=== PATIENT | female | born 1980 | race Caucasian/White ===

== ENCOUNTER 2020-08-04 12:50 | Emergency (ER) | payer OTHER ==
[~2020-08-04] VITALS: Ht 162.6 cm; Wt 65.8 kg
[~2020-08-04 12:50] MED LIST: ALBU90OI INH; CEPH500 PO; IBUP800 PO; OXYACE5T PO; SERT50 PO; ZOLP5 PO
[2020-08-04 13:25] LABS: Source, Urine Clean Catch
[2020-08-04 13:25] LABS: BASOPHILS ABSOLUTE AUTO 0.02 K/mm3 (0.00-0.23); BASOPHILS PERCENT AUTO 0 % (0-2); EOSINOPHILS ABSOLUTE AUTO 0.09 K/mm3 (0.00-0.68); EOSINOPHILS PERCENT AUTO 1 % (0-6); Hematocrit 37.9 % (33.0-51.0); Hemoglobin 12.9 g/dL (11.5-16.0); IMMATURE GRAN ABSOLUTE AUTO 0.01 K/mm3 (0.00-0.10); IMMATURE GRAN PERCENT AUTO 0 % (0-1); LYMPHOCYTES ABSOLUTE AUTO 2.28 K/mm3 (0.84-5.20); LYMPHOCYTES PERCENT AUTO 31 % (21-46); MONOCYTES ABSOLUTE AUTO 0.48 K/mm3 (0.16-1.47); MONOCYTES PERCENT AUTO 7 % (4-13); Mean Corpuscular HGB 30.4 pg (26.0-34.0); Mean Corpuscular Volume 89 fL (80-100); Mean Platelet Volume 8.3 fL (9.1-12.4); NEUTROPHILS PERCENT AUTO 61 % (41-73); Platelet Count 216 K/mm3 (150-400); RDW Coefficient Variation 11.5 % (11.7-14.2); RDW Standard Deviation 36.8 fL (35.1-46.3); Red Blood Cell Count 4.24 M/mm3 (3.80-5.20); White Blood Cell Count 7.28 K/mm3 (4.00-11.30)
[2020-08-04 13:28] LABS: Bilirubin, Urine Neg (Neg); Blood, Urine 1+ (Neg); Glucose Qualitative, Urine Neg (Neg); Ketones, Urine Neg (Neg); Leukocyte Esterase, Urine 1+ (Neg); Nitrite, Urine Neg (Neg); Protein, Urine Neg (Neg); Specific Gravity, Urine 1.025 (1.003-1.022); Urobilinogen, Urine NORM (Normal)
[2020-08-04 13:34] LABS: Appearance, Urine Hazy (Clear); Color, Urine Yellow (P-Yellow)
[2020-08-04 13:36] LABS: Bacteria Many /hpf; Red Blood Cells, Urine 0-2 /hpf (0-2); Squamous Epithelial Cells Mod /hpf (Few)
[2020-08-04 13:37] LABS: Mucus Light (0-Heavy)
[2020-08-04 13:46] LABS: Alanine Aminotransfer (ALT/SGP 25 U/L (12-78); Albumin, Blood 3.7 g/dL (3.4-5.0); Albumin/Globulin Ratio 1.1 (0.8-1.8); Alk Phos 62 U/L (50-136); Anion Gap 3 mmol/L (6-16); Aspartate Aminotrans (AST/SGOT 16 U/L (12-37); Bilirubin, Total 0.5 mg/dL (0.1-1.0); Blood Urea Nitrogen 13 mg/dL (8-24); Bun/Creatinine Ratio 18.1 (12.0-20.0); CO2, Blood 29 mmol/L (21-32); Calcium, Blood 8.6 mg/dL (8.5-10.1); Chloride, Blood 102 mmol/L (98-108); Creatinine, Blood 0.72 mg/dL (0.40-1.00); Globulin, Blood 3.4 g/dL (2.2-4.0); Glomerular Filtration Rate >60 (60-); Glucose, Blood 137 mg/dL (70-99); Potassium, Blood 3.8 mmol/L (3.5-5.5); Sodium, Blood 134 mmol/L (136-145); Total Protein, Blood 7.1 g/dL (6.4-8.2)
[2020-08-04] MEDS ORDERED: HYDCOR10 PO (16:20)
== END 2020-08-04 17:55 | disposition home or self-care (01) ==
LOC: ER 12:50
PROVIDERS: Physician Assistant
DX: N83.201 Unspecified ovarian cyst, right side (principal); Z88.1 Allergy status to other antibiotic agents; Z79.899 Other long term (current) drug therapy
CPT/HCPCS: 36415; 76856; 80053; 81001; 85025; 87086; 99284-25

== ENCOUNTER → 2021-07-29 | Outpatient (CLI) | payer OTHER ==
[~2021-07-29] MED LIST changes: +HYDCOR10 PO
[2021-07-29 13:31] LABS: BASOPHILS ABSOLUTE AUTO 0.02 K/mm3 (0.00-0.23); BASOPHILS PERCENT AUTO 0 % (0-2); EOSINOPHILS ABSOLUTE AUTO 0.14 K/mm3 (0.00-0.68); EOSINOPHILS PERCENT AUTO 2 % (0-6); Hematocrit 39.4 % (33.0-51.0); Hemoglobin 13.1 g/dL (11.5-16.0); IMMATURE GRAN ABSOLUTE AUTO 0.01 K/mm3 (0.00-0.10); IMMATURE GRAN PERCENT AUTO 0 % (0-1); LYMPHOCYTES ABSOLUTE AUTO 2.17 K/mm3 (0.84-5.20); LYMPHOCYTES PERCENT AUTO 36 % (21-46); MONOCYTES ABSOLUTE AUTO 0.42 K/mm3 (0.16-1.47); MONOCYTES PERCENT AUTO 7 % (4-13); Mean Corpuscular HGB 30.2 pg (26.0-34.0); Mean Corpuscular HGB Conc 33.2 g/dL (31.5-36.5); Mean Corpuscular Volume 91 fL (80-100); Mean Platelet Volume 8.6 fL (9.1-12.4); NEUTROPHILS ABSOLUTE AUTO 3.24 K/mm3 (1.96-9.15); NEUTROPHILS PERCENT AUTO 54 % (41-73); Platelet Count 268 K/mm3 (150-400); RDW Coefficient Variation 11.9 % (11.7-14.2); RDW Standard Deviation 39.3 fL (35.1-46.3); Red Blood Cell Count 4.34 M/mm3 (3.80-5.20)
[2021-07-29 15:26] LABS: Alanine Aminotransfer (ALT/SGP 23 U/L (12-78); Albumin, Blood 3.9 g/dL (3.4-5.0); Albumin/Globulin Ratio 1.2 (0.8-1.8); Alk Phos 77 U/L (50-136); Anion Gap 6 mmol/L (6-16); Aspartate Aminotrans (AST/SGOT 13 U/L (12-37); Bilirubin, Total 0.4 mg/dL (0.1-1.0); Blood Urea Nitrogen 13 mg/dL (8-24); Bun/Creatinine Ratio 17.9 (12.0-20.0); CHOL/HDL RATIO 2.6; CO2, Blood 28 mmol/L (21-32); Calcium, Blood 8.9 mg/dL (8.5-10.1); Chloride, Blood 106 mmol/L (98-108); Cholesterol 192 mg/dL (50-200); Creatinine, Blood 0.73 mg/dL (0.40-1.00); Globulin, Blood 3.3 g/dL (2.2-4.0); Glomerular Filtration Rate >60 (60-); Glucose, Blood 96 mg/dL (70-99); HDL Cholesterol 75 mg/dL (>39); LDL/HDL RATIO 1.3; Low Density Lipoprotein Chol 96 mg/dL (0-110); Potassium, Blood 3.9 mmol/L (3.5-5.5); Sodium, Blood 140 mmol/L (136-145); Total Protein, Blood 7.2 g/dL (6.4-8.2); Triglycerides 105 mg/dL (30-140); Very Low Density Lipoprot Chol 21 mg/dL (6-28)
[2021-07-30 15:11] LABS: HPV 16 Negative (Negative); HPV 18 Negative (Negative); HPV OTHER HR TYPES Negative (Negative)
== END | disposition home or self-care (01) ==
LOC: LAB SHORT 09:00
PROVIDERS: Nurse Practitioner
DX: Z12.4 Encounter for screening for malignant neoplasm of cervix (principal); Z11.59 Encounter for screening for other viral diseases; E78.1 Pure hyperglyceridemia; F41.1 Generalized anxiety disorder; F32.A Depression, unspecified
CPT/HCPCS: 80053; 80061; 85025; 86803; 87624; G0123

== ENCOUNTER → 2022-08-28 | Outpatient (CLI) | payer OTHER | END | disposition home or self-care (01) | LOC: LAB SHORT 16:02 → LAB 16:02 | DX: O20.0 Threatened abortion (principal) | CPT/HCPCS: 84702 ==

== ENCOUNTER → 2023-09-29 | Outpatient (CLI) | payer OTHER ==
[~2023-09-29] MED LIST changes: +METPHE10 PO
== END | disposition home or self-care (01) ==
LOC: LAB SHORT 16:26 → LAB 16:26
DX: O09.523 Supervision of elderly multigravida, third trimester (principal)
CPT/HCPCS: 87081; 87150

== ENCOUNTER 2023-10-20 04:04 | Inpatient (IN) | payer OTHER ==
[2023-10-20] VITALS (29 sets, daily range): BP systolic 82–135; BP diastolic 55–88
[~2023-10-20] VITALS: Ht 157.5 cm; Wt 73.0 kg
[2023-10-20] MEDS ORDERED: Lactated Ringer's 1,000 ML IV STA (04:14)
[2023-10-20] MEDS ORDERED: Lactated Ringer's 1,000 ML IV SCH ×2 (04:15→07:40)
[2023-10-20] MEDS ORDERED: CeFAZolin Sodium 2,000 MG in NS 100 ML IV SCH (04:15)
[2023-10-20 04:38] LABS: BASOPHILS ABSOLUTE AUTO 0.03 K/mm3 (0.00-0.23); BASOPHILS PERCENT AUTO 0 % (0-2); EOSINOPHILS ABSOLUTE AUTO 0.19 K/mm3 (0.00-0.68); EOSINOPHILS PERCENT AUTO 3 % (0-6); Hematocrit 39.3 % (33.0-51.0); Hemoglobin 13.6 g/dL (11.5-16.0); IMMATURE GRAN ABSOLUTE AUTO 0.03 K/mm3 (0.00-0.10); IMMATURE GRAN PERCENT AUTO 0 % (0-1); LYMPHOCYTES ABSOLUTE AUTO 2.17 K/mm3 (0.84-5.20); LYMPHOCYTES PERCENT AUTO 31 % (21-46); MONOCYTES ABSOLUTE AUTO 0.63 K/mm3 (0.16-1.47); MONOCYTES PERCENT AUTO 9 % (4-13); Mean Corpuscular HGB Conc 34.6 g/dL (31.5-36.5); Mean Corpuscular Volume 87 fL (80-100); Mean Platelet Volume 9.7 fL (9.1-12.4); NEUTROPHILS ABSOLUTE AUTO 4.01 K/mm3 (1.96-9.15); NEUTROPHILS PERCENT AUTO 57 % (41-73); Platelet Count 174 K/mm3 (150-400); RDW Coefficient Variation 13.8 % (11.7-14.2); RDW Standard Deviation 43.6 fL (35.1-46.3); Red Blood Cell Count 4.53 M/mm3 (3.80-5.20); White Blood Cell Count 7.06 K/mm3 (4.00-11.30)
[2023-10-20] MEDS ORDERED: Ondansetron HCl 2 MG / ML 2ML Vial IV PRN ×2 (04:40→07:30)
[2023-10-20] MEDS ORDERED: Terbutaline Sulfate 1MG / ML 1 ML Amp ONE (04:43)
[2023-10-20] MEDS ORDERED: Terbutaline Sulfate 1MG / ML 1 ML Amp SC ONE (04:50)
[2023-10-20] MEDS ORDERED: Citric Acid/Sodium Citrate 30 ML BTL ONE (05:10)
[2023-10-20] MEDS ORDERED: Metoclopramide HCl 5MG / ML 2ML Vial ONE (05:11)
[2023-10-20] MEDS ORDERED: Oxytocin 10 Unit / ML Vial ONE (05:18)
[2023-10-20] MEDS ORDERED: FentaNYL Citrate 50 MCG/ML 2 ML Injection ONE (05:18)
[2023-10-20] MEDS ORDERED: Phenylephrine HCl 100 MCG/ML-NS 10MLSYR (1MG/10ML) ONE (05:57)
[2023-10-20] MEDS ORDERED: Labetalol HCL 5 MG/ML 4ML Injection (Single Dose) ONE (06:06)
[2023-10-20] MEDS ORDERED: Tranexamic Acid 100 ML IV ONE (06:07)
[2023-10-20 06:19] LABS: PCO2 Cord - Arterial 60.1 mmHg (40-50); pH Cord - Arterial 7.25 (7.28-7.35)
[2023-10-20 06:20] LABS: PCO2 Cord - Venous 56.9 mmHg (40-50); PO2 Cord - Venous 15.7 mmHg (28-32); pH Umbilical Cord - Venous 7.26 (7.26-7.35)
[2023-10-20] MEDS ORDERED: Misoprostol 200 MCG Tab PR PRN (07:30)
[2023-10-20] MEDS ORDERED: OxyCODONE HCL 5 MG TAB PO PRN ×3 (07:30→14:00)
[2023-10-20] MEDS ORDERED: OXYTOCIN/RINGER'S LACTATE 500 ML IV SCH (07:35)
[2023-10-20] MEDS ORDERED: Simethicone 80 MG Chew PO PRN (07:35)
[2023-10-20] MEDS ORDERED: HYDROmorphone HCl/Pf 1MG SYR IV PRN (07:35)
[2023-10-20] MEDS ORDERED: Lanolin Cream TOP PRN (07:35)
[2023-10-20] MEDS ORDERED: Carboprost Tromethamine 250 MCG/ML 1ML Amp IM PRN (07:35)
[2023-10-20] MEDS ORDERED: PRENATAL TABLE1 EAC2 PO (07:39)
[2023-10-20] MEDS ORDERED: Promethazine HCl 25 MG Tab PO PRN (07:40)
[2023-10-20] MEDS ORDERED: Metoclopramide HCl 5MG / ML 2ML Vial IV PRN (07:40)
[2023-10-20] MEDS ORDERED: Magnesium Hydroxide Conc 10 ML UDC PO PRN (07:40)
[2023-10-20] MEDS ORDERED: DiphenhydrAMINE HCL 25 MG Cap PO PRN (07:40)
[2023-10-20] MEDS ORDERED: Methylergonovine Maleate 0.2MG / ML 1ML Amp IM PRN (07:40)
[2023-10-20] MEDS ORDERED: Ibuprofen 400 MG Tab PO SCH (08:00)
[2023-10-20] MEDS ORDERED: Ketorolac Tromethamine 30mg Vial IV SCH ×2 (08:00→14:00)
[2023-10-20] MEDS ORDERED: Polyethylene Glycol 3350 17 gm PO SCH (09:00)
[2023-10-20] MEDS ORDERED: Prenatal Vit/FE Fumarate/FA 1 Tab PO SCH (09:00)
[2023-10-20] MEDS ORDERED: IBUP800 PO (09:17)
[2023-10-20] MEDS ORDERED: ACET500 PO (09:17)
[2023-10-20] MEDS ORDERED: Acetaminophen 500 MG Tab PO PRN (11:49)
[2023-10-20] MEDS ORDERED: Acetaminophen 500 MG Tab PO SCH ×2 (12:00→14:00)
--- NOTE | 2023-10-20 13:01 | NUR ---
REPORT TO Niles CAMPBELL RN
[2023-10-20] MEDS ORDERED: Acetaminophen 500 MG Tab ONE (13:17)
[2023-10-20] MEDS ORDERED: OxyCODONE HCL 5 MG TAB PO ONE (14:00)
[2023-10-20] MEDS ORDERED: Gabapentin 300 MG Cap PO SCH (14:00)
--- NOTE | 2023-10-20 14:52 | NUR ---
1340 DR SINGLETARY INTO SEE PATIENT D/T SEVERE PAIN. PT STATES THE CRAMPING IS CONSTANT AND NOTHING HAS HELPED. DR SINGLETARY ASSESSED ABDOMEN AND WE READJUSTED BINDER. DR SINGLETARY PUTTING NEW ORDERS IN. 1455 KPAD GIVEN. PT NOW RESTING AND FEELINGS LIKE SHE COULD TAKE A NAP. WILL CALL WITH ANY CHANGES. LOCHIA SCANT. VSS.
[2023-10-21 04:21] VITALS: BP 105/58
[2023-10-21 07:16] LABS: BASOPHILS ABSOLUTE AUTO 0.02 K/mm3 (0.00-0.23); BASOPHILS PERCENT AUTO 0 % (0-2); EOSINOPHILS ABSOLUTE AUTO 0.04 K/mm3 (0.00-0.68); EOSINOPHILS PERCENT AUTO 0 % (0-6); Hematocrit 33.6 % (33.0-51.0); Hemoglobin 11.4 g/dL (11.5-16.0); IMMATURE GRAN ABSOLUTE AUTO 0.12 K/mm3 (0.00-0.10); IMMATURE GRAN PERCENT AUTO 1 % (0-1); LYMPHOCYTES PERCENT AUTO 12 % (21-46); MONOCYTES ABSOLUTE AUTO 0.66 K/mm3 (0.16-1.47); MONOCYTES PERCENT AUTO 6 % (4-13); Mean Corpuscular HGB 30.2 pg (26.0-34.0); Mean Corpuscular HGB Conc 33.9 g/dL (31.5-36.5); Mean Corpuscular Volume 89 fL (80-100); Mean Platelet Volume 9.3 fL (9.1-12.4); NEUTROPHILS ABSOLUTE AUTO 9.18 K/mm3 (1.96-9.15); NEUTROPHILS PERCENT AUTO 80 % (41-73); Platelet Count 144 K/mm3 (150-400); RDW Coefficient Variation 14.3 % (11.7-14.2); RDW Standard Deviation 46.1 fL (35.1-46.3); Red Blood Cell Count 3.78 M/mm3 (3.80-5.20); White Blood Cell Count 11.42 K/mm3 (4.00-11.30)
[2023-10-21 07:33] VITALS: BP 111/76
[2023-10-21] MEDS ORDERED: Ibuprofen 400 MG Tab PO SCH (08:00)
[2023-10-21] MEDS ORDERED: Famotidine 20 MG Tab PO SCH (09:00)
[2023-10-21 12:42] VITALS: BP 140/86
[2023-10-21 18:26] VITALS: BP 121/84
[2023-10-21 19:17] VITALS: BP 127/79
[2023-10-22 08:04] VITALS: BP 121/78
--- NOTE | 2023-10-22 10:30 | NUR ---
10/22/23 1030 UP WALKING IN LAU, PUSHING CRIB
[2023-10-22] MEDS ORDERED: Citric Acid/Sodium Citrate 30 ML BTL PO ONE (14:00)
[2023-10-22] MEDS ORDERED: Tranexamic Acid 1,000 MG in NS 100 ML IV ONE (14:00)
[2023-10-22 15:34] VITALS: BP 150/94
[2023-10-22] MEDS ORDERED: Ketorolac Tromethamine 30mg Vial IV ONE (17:00)
--- NOTE | 2023-10-22 17:13 | NUR ---
10/22/23 1400 ambulating in halls, pushing baby in crib. given prune juice to drink to help with flatus
[2023-10-22] MEDS ORDERED: Ketorolac Tromethamine 15mg Vial IV SCH (17:25)
--- NOTE | 2023-10-22 19:21 | NUR ---
10/22/230 Dr Thrasher here to see pt. Pt talking with MD about feeling numbness in her sacral area, yet she has feeling in her butt cheeks and down her legs. Pt continues to deny passing flatus, even though she has ambulated in halls 3 times today, taken shower nad tolerated her food well. She has only been nauseated x 1 and recieved 1 dose of zofran. Pt has had miralax, MOM and several glasses of prune juice. she has sat on the toilet several times and voiding well, yet no flatus. RN continues to encourage pt to ambulate in halls tonight, yet pt states that she thinks becasue she has walked so much, it is causing her more pain and distention in her abd. Reassured pt that the distention in her abd may be from the gas being trapped and her moving more will assist in the release of the gas and thus decrease her pain. Bowels tones have been heart in 4 quadrants 2 times today and then by Dr Thrasher also this evening.
[2023-10-22 19:54] VITALS: BP 141/86
--- NOTE | 2023-10-22 20:11 | NUR ---
PT REPORTS THAT SHE STILL HAS NOT PASSED GAS AT THIS TIME. ACTIVE BOWEL TONES HEARD IN ALL QUADRANTS. ABDOMEN IS DISTENDED AND NONTENDER TO TOUCH. PT HELPED OUT OF BED AND TO BATHROOM AT THIS TIME.
[2023-10-23 00:47] VITALS: BP 148/89
[2023-10-23] MEDS ORDERED: OxyCODONE HCL 5 MG TAB PO PRN (01:15)
[2023-10-23 04:37] VITALS: BP 122/84; BP 133/91
--- NOTE | 2023-10-23 05:31 | NUR ---
pt reports that she was able to pass gas at this time
[2023-10-23] MEDS ORDERED: Glycerin Adult Supp 1 EA PR PRN (05:50)
[2023-10-23 08:06] VITALS: BP 113/72
[2023-10-23 12:31] VITALS: BP 122/72
--- NOTE | 2023-10-23 14:33 | NUR ---
10/23/23 1430 pt sitting up in bed drinking prune juice with a pat of butter in it
[2023-10-23] MEDS ORDERED: Sod Phosphate/Sod Biphosphate 132 ML BTL PR ONE (16:10)
[2023-10-23 16:44] VITALS: BP 142/90
--- NOTE | 2023-10-23 17:15 | NUR ---
called to room pt reports had a bowel movement, asked rn to look and see. the water is yellow cloudy with a med looser form at the bottom, hard to see. pt reports that is the size of BM she would have at home last week. she reports she would like to go home. dr carroll in house, updated. aware was hard to tell how much was in the toilet, that pt reports that is a normal amount for her. dr carroll in to talk to pt at 1730.
== END 2023-10-23 18:10 | disposition home or self-care (01) | DRG 785 ==
LOC: BC 04:04
PROVIDERS: ADMIT Obstetrics & Gynecology
PROC: 0UB70ZZ Excision of Bilateral Fallopian Tubes, Open Approach (ICD-10-PCS; 2023-10-20)
PROC: 4A033R1 Measurement of Arterial Saturation, Peripheral, Percutaneous Approach (ICD-10-PCS; 2023-10-20)
PROC: 10D00Z1 Extraction of Products of Conception, Low, Open Approach (ICD-10-PCS; principal; 2023-10-20 07:00)
DX: O42.02 Full-term premature rupture of membranes, onset of labor within 24 hours of rupture (principal); D25.9 Leiomyoma of uterus, unspecified; Z37.0 Single live birth; O34.13 Maternal care for benign tumor of corpus uteri, third trimester; O24.420 Gestational diabetes mellitus in childbirth, diet controlled; Z3A.39 39 weeks gestation of pregnancy; O99.62 Diseases of the digestive system complicating childbirth; K59.00 Constipation, unspecified; Z30.2 Encounter for sterilization; Z87.891 Personal history of nicotine dependence; Z88.1 Allergy status to other antibiotic agents; Z79.899 Other long term (current) drug therapy
CPT/HCPCS: 36415; 74022; 82803; 82947; 85025; 86850; 86900; 86901; 86923; 88302; A9270; J0690; J1170; J1885; J2371; J2405; J2590; J2765; J3010; J3105; J7120